=== PATIENT | male | born 1970 | race Caucasian/White ===

== ENCOUNTER 2017-07-17 07:28 | Emergency (ER) | payer OTHER ==
[~2017-07-17] VITALS: Ht 170.2 cm; Wt 97.5 kg
[~2017-07-17 07:28] MED LIST: AVAPRO150 MG; TOPROL XL25 MG; TRAMADOL HCL-AP1 TAB PO
== END 2017-07-17 14:24 | disposition home or self-care (01) ==
LOC: ER 07:28
DX: K76.0 Fatty (change of) liver, not elsewhere classified (principal); R10.2 Pelvic and perineal pain

== ENCOUNTER 2019-11-16 09:44 | Emergency (ER) | payer OTHER ==
[~2019-11-16] VITALS: Ht 170.2 cm; Wt 94.3 kg
[2019-11-16] MEDS ORDERED: DOXAZOSIN MESYLA2 MG PO (09:55)
[2019-11-16] MEDS ORDERED: GABAPENTIN300 M2 PO (09:55)
[2019-11-16] MEDS ORDERED: ACETAMINOPHEN500 M2 PO (10:51)
[2019-11-16] MEDS ORDERED: ORPHENADRINE C100 MG PO (10:51)
== END 2019-11-16 10:58 | disposition home or self-care (01) ==
LOC: ER 09:44
DX: M54.2 Cervicalgia (principal); M62.838 Other muscle spasm; M51.36 Other intervertebral disc degeneration, lumbar region

== ENCOUNTER 2020-07-18 08:44 | Emergency (ER) | payer OTHER ==
[~2020-07-18] VITALS: Ht 170.2 cm; Wt 93.4 kg
[~2020-07-18 08:44] MED LIST changes: +ACETAMINOPHEN500 M2 PO; +DOXAZOSIN MESYLA2 MG PO; +GABAPENTIN300 M2 PO; +ORPHENADRINE C100 MG PO
[2020-07-18] MEDS ORDERED: INTESTINEX680 M1 PO (11:10)
== END 2020-07-18 11:13 | disposition home or self-care (01) ==
LOC: ER 08:44
DX: K30 Functional dyspepsia (principal); R42 Dizziness and giddiness

== ENCOUNTER 2020-12-07 07:23 | Emergency (ER) | payer OTHER ==
[~2020-12-07] VITALS: Ht 170.2 cm; Wt 93.9 kg
[~2020-12-07 07:23] MED LIST changes: +INTESTINEX680 M1 PO
[2020-12-07] MEDS ORDERED: METOPROLOL SUCC50 MG PO (07:48)
[2020-12-07] MEDS ORDERED: MEDROLPACK PO (10:36)
[2020-12-07] MEDS ORDERED: NORFLEX100MG PO (10:36)
== END 2020-12-07 11:10 | disposition home or self-care (01) ==
LOC: ER 07:23
DX: M54.2 Cervicalgia (principal); M54.5 Low back pain

== ENCOUNTER 2021-03-13 08:07 | Emergency (ER) | payer OTHER ==
[~2021-03-13] VITALS: Ht 170.2 cm; Wt 90.7 kg
[~2021-03-13 08:07] MED LIST changes: +MEDROLPACK PO; +METOPROLOL SUCC50 MG PO; +NORFLEX100MG PO
== END 2021-03-13 09:52 | disposition home or self-care (01) ==
LOC: ER 08:07
DX: M54.30 Sciatica, unspecified side (principal)

== ENCOUNTER 2022-04-20 08:56 | Emergency (ER) | payer OTHER ==
[~2022-04-20] VITALS: Ht 170.2 cm; Wt 90.7 kg
[2022-04-20] MEDS ORDERED: CARDURA1 MG (09:09)
[2022-04-20] MEDS ORDERED: GABAPENTIN300 M2 (09:10)
[2022-04-20] MEDS ORDERED: NORFLEX100MG PO (13:01)
== END 2022-04-20 13:05 | disposition home or self-care (01) ==
LOC: ER 08:56
DX: M54.50 Low back pain, unspecified (principal)

== ENCOUNTER 2023-05-10 09:44 | Emergency (ER) | payer OTHER ==
[~2023-05-10] VITALS: Ht 170.2 cm; Wt 78.0 kg
[~2023-05-10 09:44] MED LIST changes: +CARDURA1 MG; +GABAPENTIN300 M2
[2023-05-10] MEDS ORDERED: TETANUS & DIPHTHERIA TOX,ADULT 0.5 ML VIAL IM ONE (10:30)
== END 2023-05-10 10:49 | disposition home or self-care (01) ==
LOC: ER 09:45
DX: S81.851A Open bite, right lower leg, initial encounter (principal); W55.01XA Bitten by cat, initial encounter; Y93.89 Activity, other specified; Y92.89 Other specified places as the place of occurrence of the external cause; Y99.8 Other external cause status; I10 Essential (primary) hypertension; Z88.2 Allergy status to sulfonamides; Z88.6 Allergy status to analgesic agent